=== PATIENT | female | born 1960 | race Caucasian/White ===

== ENCOUNTER 2023-08-04 15:07 | Emergency (ER) | payer OTHER, SELFPAY ==
[2023-08-04] VITALS (7 sets, daily range): BP systolic 145–162; BP diastolic 76–85; PULSE 87–118; RESP 17–20; TEMP 36.2–37.4; O2SAT 98–99; BMI 24.1
--- NOTE | ~2023-08-04 | CT_ITS ---
EXAMINATION: CT HEAD WITHOUT CONTRAST CLINICAL INFORMATION: Fall, head strike COMPARISON: None available. TECHNIQUE: Contiguous axial imaging was performed from the skull base to vertex without intravenous administration of contrast. This CT examination was performed using dose optimization techniques as appropriate, variously including the following: *Automated exposure control *Adjustment of mA and/or kV according to patient size (this includes techniques or standardized protocols for targeted exams where dose is matched to indication/reason for exam; i.e. extremities or head) *Use of iterative reconstruction technique DLP: 597 mGy-cm FINDINGS: There is no evidence of acute intracranial hemorrhage or edematous territorial infarction. No abnormal mass effect or midline shift is seen. Espinoza to white matter differentiation is well preserved. No extra-axial fluid collections are identified. The ventricles are normal in size. No abnormal attenuation in the brain parenchyma. No acute calvarial fracture.. Paranasal sinuses and mastoid air cells are well-aerated. CT/CT head/brain wo IV con IMPRESSION: No CT evidence of acute intracranial hemorrhage or edematous territorial infarction.
--- NOTE | ~2023-08-04 | CT_ITS ---
EXAMINATION: CT ABDOMEN AND PELVIS WITHOUT CONTRAST CLINICAL INFORMATION: Abdominal pain, vomiting, diarrhea, elevated liver function tests. COMPARISON: None available. TECHNIQUE: Multidetector volumetric imaging was performed from the superior aspect of the liver through the pubic symphysis. Sagittal and coronal reformatted images were obtained on the technologist's workstation. This CT examination was performed using dose optimization techniques as appropriate, variously including the following: *Automated exposure control *Adjustment of mA and/or kV according to patient size (this includes techniques or standardized protocols for targeted exams where dose is matched to indication/reason for exam; i.e. extremities or head) *Use of iterative reconstruction technique DLP: 432 mGy-cm FINDINGS: LUNG BASES: The visualized lung bases are unremarkable. No pericardial or pleural effusion. LIVER, GALLBLADDER, AND BILIARY TREE: Low-attenuation of the liver parenchyma with respect to spleen, suggesting hepatic steatosis.. No focal hepatic lesion or biliary ductal dilatation is present. Gallbladder is surgically absent. PANCREAS: No acute inflammatory changes seen. SPLEEN: Unremarkable. ADRENAL GLANDS: Unremarkable. KIDNEYS AND URETERS: The kidneys are normal in size, shape, and attenuation. No hydronephrosis, hydroureter, or calculi seen. No perinephric stranding. Small hypodense lesion in the right renal lower pole, statistically likely to be a cyst. No follow-up is indicated for this. BLADDER: Unremarkable. GASTROINTESTINAL TRACT: Stomach is nondistended. No dilated large or small bowel seen. No bowel inflammatory changes identified. Appendix appears unremarkable. No free fluid. No free air. ABDOMINAL WALL: Small fat-containing umbilical hernia. LYMPH NODES: No pathologically enlarged lymph nodes are seen. VASCULAR: Normal caliber aorta. Atherosclerotic calcification. PELVIC VISCERA: Unremarkable. OSSEOUS STRUCTURES: Multilevel degenerative changes in the spine. S-shaped curvature of the spine. CT/CT abdomen pelvis wo IV con IMPRESSION: Hepatic steatosis. Status postcholecystectomy. No biliary duct dilatation seen. Nonobstructive bowel gas pattern. No acute intra-abdominal findings otherwise identified. Fleischner guidelines were followed.
--- NOTE | ~2023-08-04 | XR_ITS ---
EXAMINATION: XR CHEST CLINICAL INFORMATION: Pain. COMPARISON: None available. TECHNIQUE: 2 views of the chest were obtained. FINDINGS: No airspace consolidation. No pleural effusion or pneumothorax. Unremarkable cardiac mediastinal silhouette. Multiple healed right-sided rib fractures. XR/XR chest 2V IMPRESSION: 1. No acute cardiopulmonary findings. 2. Multiple healed right-sided rib fractures.
--- NOTE | 2023-08-04 15:19 | ED.SEIZURE ---
HPI - Seizure General Chief Complaint: Neuro Symptoms/Deficit Stated Complaint: Seizure this AM Time Seen by Provider: 08/04/23 17:45 Source: patient Mode of arrival: ambulatory Limitations: no limitations History of Present Illness HPI Narrative: Patient drinks every day but claims not alcoholic no issues with drinking in the past for last few weeks been nauseated and vomiting multiple times with poor oral intake for last several weeks was with family at drink yesterday bending down all of a sudden eyes roll started shaking seizure lasted for 2-3 minute no head injury patient has been having tremors and increased anxiety patient lives alone denies any significant intake of alcohol but drinks every other day Related Data Previous Rx's ?Medication ?Instructions ?Recorded lorazepam 2 mg tablet (Ativan) 2 mg PO TID PRN alcohol withdrawal 08/04/23 #20 tabs Allergies Allergy/AdvReac Type Severity Reaction Status Date / Time penicillin G [Penicillin G] Allergy Unknown RASH Verified 08/04/23 15:24 Sulfa (Sulfonamide Allergy Unknown RASH Verified 08/04/23 15:24 Antibiotics) Review of Systems Review of Systems: Yes all other systems are reviewed and are negative [facility] Social History Social History Alcohol intake: current Alcohol intake frequency: holidays/special occasions only Smoked in Last 30 Days: No Use of substances other than those prescribed or required for medical reasons: No Advance Directives: No Advance Directives Information Provided: Yes Do you have a plan to hurt others: No Plan Physical Exam Vital Signs: Vital Signs: Last Vital Signs Temp 97.9 F 08/04/23 20:46 Pulse 87 08/04/23 20:46 Resp 17 08/04/23 20:46 BP 146/79 H 08/04/23 20:46 Pulse Ox 98 08/04/23 20:46 O2 Del Method Room Air 08/04/23 20:46 BMI result Body Mass Index 24.1 Appearance: Alert. Oriented X3. No acute distress. Eyes: PERRLA, No Nystagmus ENT: Pharynx normal. Oral Mucosa moist atraumatic normocephalic Neck: Normal inspection. Neck supple. CVS: Normal heart rate and rhythm. Pulses normal. Respiratory: No respiratory distress. Equal air entry bilateral, no wheezing/rales/rhonchi Abdomen: Soft and nontender. Bowel sounds are present, no mass palpable, no CVA tenderness Skin: Skin warm and dry. Normal skin color. Normal skin turgor. Extremities: No lower extremity edema. No calf tenderness Neuro: Oriented X 3. No motor deficit. No sensory deficit.No cerebellar signs , cranial nerves II-XII intact tremors++ Course Course Course Narrative: This is a rapid medical exam. deferred additional HPI, ROS, PE to primary provider. 62 yo female with history of asthma (as a child), HTN, HLD, depression has had vomiting/diarrhea/generalized abdominal pain x several weeks. Today patient was bending down and then had stiffness and trembling which family feels was a seizure followed by a head strike. Had period of unresponsiveness, confusion per family. Family reports increasing depression, poor appetite and 40lb weight loss in the last 5 months. Will need labs, orthos, EKG, UA, CXR, CT head Mildly tachycardic, hypertensive -A Pascucci [employer] Medications Administered Discontinued Medications Generic Name Dose Route Start Last Admin Trade Name Zack PRN Reason Stop Dose Admin Famotidine 20 mg 08/04/23 18:10 08/04/23 18:29 Famotidine/Pf 20 Mg/2 Ml Vial IVPUSH 08/04/23 18:11 20 mg ONCE ONE Administration Potassium Chloride 10 meq in 100 mls @ 100 mls/hr 08/04/23 18:10 08/04/23 18:29 Potassium Chloride/H20 IV 08/04/23 19:09 100 mls/hr ONCE ONE Administration Sodium Chloride 1,000 mls @ 999 mls/hr 08/04/23 18:09 08/04/23 18:29 Ns IV 08/04/23 19:09 999 mls/hr .Q1H1M ONE Administration Lorazepam 1 mg 08/04/23 18:10 08/04/23 18:29 Lorazepam 2 Mg/Ml Vial IVPUSH 08/04/23 18:11 1 mg ONCE ONE Administration Lorazepam 2 mg 08/04/23 21:10 08/04/23 21:25 Lorazepam 1 Mg Tablet PO 08/04/23 21:11 2 mg ONCE ONE Administration Ondansetron HCl 4 mg 08/04/23 16:33 08/04/23 16:35 Ondansetron Odt 4 Mg Tab.Rapdis TRANSLINGU 08/04/23 16:34 4 mg ONCE ONE Administration Ondansetron HCl 4 mg 08/04/23 18:10 08/04/23 18:29 Ondansetron Hcl 4 Mg/2 Ml Vial IVPUSH 08/04/23 18:11 4 mg ONCE ONE Administration Medical Decision Making Medical Decision Making [facility] Narrative: Patient clinically alcoholic with alcohol withdrawal seizure patient denies significant use alcohol but LFTs are elevated GGT is also elevated says she drinks every other day. Patient's like to go home and follow up with PCP and like to do alcohol withdrawal at home with Ativan Differential Diagnosis Differential Diagnoses: The differential diagnosis associated with the presentation includes Alcoholic liver disease/alcohol withdrawal/seizure/ Admission/Observation Consideration of admission/observation: Escalation of care including admission/observation considered Lab Data [facility] Lab Attestation statement: I reviewed the patient's lab results. 08/04/23 16:06 08/04/23 16:06 Labs: Lab Results 08/04/23 08/04/23 08/04/23 Range/Units 16:06 18:20 20:48 WBC 7.0 (4.8-10.8) X10*3/uL RBC 3.88 L (4.20-5.50) X10*6/uL Hgb 12.7 (12.0-16.0) g/dl Hct 35.0 L (37.0-47.0) % MCV 90.2 (80.0-98.0) fL MCH 32.7 (27.0-33.0) pg MCHC 36.3 H (31.0-35.0) g/dl RDW 13.0 (11.0-16.0) % Plt Count 162 (160-400) X10*3/uL MPV 8.4 L (9.4-12.3) fL Immature Gran % (Auto) 0.3 (0.0-0.4) % Neut % (Auto) 75.2 H (45-73) % Lymph % (Auto) 8.7 L (20-40) % Cowley % (Auto) 12.5 H (2-11) % Eos % (Auto) 2.7 (0-4) % Baso % (Auto) 0.6 (0-2) % Lymph # (Auto) 0.6 L (1.2-4.9) X10*3/uL [place]ley # (Auto) 0.9 (0.1-1.2) X10*3/uL Eos # (Auto) 0.2 (0.0-0.4) X10*3/uL Baso # (Auto) 0.0 (0.0-0.2) X10*3/uL Abs Immat Gran (auto) 0.02 (0.00-0.03) X10*3/uL Absolute Neuts (auto) 5.3 (2.0-8.3) x10*3/uL Absolute Nucleated RBC 0.000 (0.0-0.012) X10*3/uL Nucleated RBC % (auto) 0.0 (0.0-0.2) /100WBC Sodium 134 L (135-145) mmol/L Potassium 3.2 L (3.3-5.1) mmol/L Chloride 96 (96-108) mmol/L Carbon Dioxide 21 L (22-29) mmol/L Anion Gap 20 (12-20) BUN 9 (9-16) mg/dL Creatinine 0.66 (0.5-1.4) mg/dL Estim Creat Clear Calc 72.2 Estimated GFR > 60 Random Glucose 99 (60-115) mg/dL Calcium 9.4 (8.4-10.2) mg/dL Magnesium 2.2 (1.6-2.6) mg/dL Total Bilirubin 3.1 H (0.0-1.0) mg/dL Direct Bilirubin 0.9 H (0.0-0.5) mg/dL GGT 1822 H (7-33) U/L AST 156 H (5-31) U/L ALT 122 H (0-31) U/L Alkaline Phosphatase 202 H (39-117) U/L Total Creatine Kinase 403 H (26-140) U/L Troponin I High Sens 161.2 H* 156.0 H* (<3.5-17.0) ng/L Total Protein 8.2 H (6.5-8.0) g/dL Albumin 4.8 (3.5-5.0) g/dL Urine Color Yellow Urine Appearance Clear Urine pH 7.0 (5.0-9.0) Ur Specific [place] 1.015 (1.005-1.025) Urine Protein Trace (Neg-Trace) mg/dL Urine Glucose (UA) Negative (Negative) mg/dL Urine Ketones 40 (Negative) mg/dL Urine Blood Negative (Negative) Urine Nitrite Negative (Negative) Ur Leukocyte Esterase Negative (Negative) Independent Interpretation I performed an independent interpretation of an: EKG and CT Scan Interpretation: Sinus tachycardia heart rate of 103 beats per minute poor progression of R-wave QTC [address] elevation Radiology Impression Discussion of test interpretation with radiology: I have reviewed the radiologist's reading. Discharge Plan Discharge Clinical Impression: Alcoholic liver disease, New onset seizure Patient Disposition: Home, Self-Care Instructions: New-Onset Seizure in Adults (ED), Alcohol Dependence (ED) Additional Instructions: Stop drinking alcohol You need to follow up with neurologist for further management you possible had alcohol withdrawal seizure Your potassium was also slightly low , eat food containing high potassium leg bananas orange juice/coconut water Ativan 1 mg every 4-6 hours as needed for alcohol withdrawal/seizure Follow with leather sorter for elevated liver enzymes Prescriptions: New lorazepam [Ativan] 2 mg tablet 2 mg PO TID PRN (Reason: alcohol withdrawal) Qty: 20 0RF Referrals: Esteban Vasquez MD [Physician] - 1 week Italo Cramer MD [Physician] - 1 week Print Language: Telugu
--- NOTE | 2023-08-04 15:21 | ECG_ITS ---
Test Reason : seizure Blood Pressure : / mmHG Vent. Rate : 103 BPM Atrial Rate : 103 BPM P-R Int : 178 ms QRS Dur : 078 ms QT Int : 366 ms P-R-T Axes : 027 -28 013 degrees QTc Int : 479 ms Sinus tachycardia Inferior infarct , age undetermined Cannot rule out Anterior infarct , age undetermined Abnormal ECG When compared with ECG of 08-JAN-2009 15:48, Vent. rate has increased BY 35 BPM Minimal criteria for Anterior infarct are now Present Inferior infarct is now Present QT has lengthened Referred By: Kaitlynn Rodriguez Electronically Signed By:JOSE KOEHLER MD
[2023-08-04 16:10] LABS: MANUAL DIFF FLAG NO
[2023-08-04 16:11] LABS: Basophils Percent Auto 0.6 % (0-2); Hemoglobin 12.7 g/dl (12.0-16.0); Imm Gran Abs Auto 0.02 X10*3/uL (0.00-0.03); Imm Gran Pct Auto 0.3 % (0.0-0.4); PLT CLUMP 1; SCAN SMEAR FLAG 1
[2023-08-04 16:13] LABS: Eosinophils Absolute Auto 0.2 X10*3/uL (0.0-0.4); Eosinophils Percent Auto 2.7 % (0-4); Lymphocytes Absolute Auto 0.6 X10*3/uL (1.2-4.9); Lymphocytes Percent Auto 8.7 % (20-40); Mean Corpuscular HGB Conc 36.3 g/dl (31.0-35.0); Mean Corpuscular Hemoglobin 32.7 pg (27.0-33.0); Mean Corpuscular Volume 90.2 fL (80.0-98.0); Mean Platelet Volume 8.4 fL (9.4-12.3); Monocytes Absolute Auto 0.9 X10*3/uL (0.1-1.2); Monocytes Percent Auto 12.5 % (2-11); Neutrophils Absolute Auto 5.3 x10*3/uL (2.0-8.3); Neutrophils Percent Auto 75.2 % (45-73); Red Blood Count 3.88 X10*6/uL (4.20-5.50)
[2023-08-04 16:14] LABS: Platelet Count 162 X10*3/uL (160-400)
[2023-08-04 16:25] LABS: Alanine Aminotransferase 122 U/L (0-31); Albumin Level 4.8 g/dL (3.5-5.0); Alkaline Phosphatase 202 U/L (39-117); Anion Gap 20 (12-20); Aspartate Amino Transferase 156 U/L (5-31); Bilirubin Direct 0.9 mg/dL (0.0-0.5); Bilirubin Total 3.1 mg/dL (0.0-1.0); Blood Urea Nitrogen 9 mg/dL (9-16); Calcium 9.4 mg/dL (8.4-10.2); Carbon Dioxide 21 mmol/L (22-29); Chloride 96 mmol/L (96-108); Creatinine Clr Calc Pharmacy 72.2; Estimated Glomerular Filt Rate > 60; Glucose Random 99 mg/dL (60-115); Magnesium 2.2 mg/dL (1.6-2.6); Potassium 3.2 mmol/L (3.3-5.1); Sodium 134 mmol/L (135-145); Total Protein 8.2 g/dL (6.5-8.0)
[2023-08-04 16:34] LABS: Troponin-I High Sensitivity 161.2 ng/L (<3.5-17.0)
[2023-08-04] MEDS: Ondansetron ODT 4 MG TAB.RAPDIS TRANSLINGU (16:35)
--- NOTE | 2023-08-04 17:30 | PC.NURSE ---
Patient reports n/v and abdominal pain x 6 months, reports has lost 40lbs since Mar, reports has had insomnia for years but it has been worse in the last 6 months, denies headache or chest pain. Patient reports rarely drinks however friend at bedside states he has been with her for the last few days and she has drank multiple bottles of wine. Patient reports has had tremors since Mar that are worse today. Pupils appear dilated bilaterally. Friend reports that she fell and hit her head this morning and had x 1 minute of seizure like activity this am. Patient denies seizure hx, friend reports patient has seemed disoriented and forgot to bring her mediations on the trip they just went on
[2023-08-04] MEDS: ondansetron HCL 4 MG/2 ML VIAL IVPUSH (18:29)
[2023-08-04] MEDS: LORazepam 2 MG/ML VIAL 1 MG IVPUSH (18:29)
[2023-08-04] MEDS: Famotidine/PF 20 MG/2 ML VIAL IVPUSH (18:29)
[2023-08-04] MEDS: Potassium Chloride/H20 10 MEQ/100 ML PIGGYBACK 100 MEQ IV (18:29)
[2023-08-04] MEDS: 0.9 % Sodium Chloride 1,000 ML 999 ML IV (18:29)
[2023-08-04 18:39] LABS: Gamma Glutamyl Transpeptidase 1822 U/L (7-33)
[2023-08-04 20:53] LABS: Appearance Urine Clear; Color Urine Yellow; Glucose Urine UA Negative (Negative); Leukocyte Esterase Urine Negative (Negative); Nitrite Urine Negative (Negative); Specific Gravity - Urine 1.015 (1.005-1.025); Urine Blood Negative (Negative); Urine Ketones 40 mg/dL (Negative); Urine Protein Trace mg/dL (Neg-Trace)
[2023-08-04] MEDS: LORazepam 1 MG TABLET 2 MG PO (21:25)
[2023-08-05 03:17] VITALS: BP 146/79; PULSE 87; RESP 17; TEMP 36.6; O2SAT 98
== END 2023-08-04 21:30 | disposition home or self-care (01) ==
PROVIDERS: Nurse Practitioner Family; Emergency Provider Internal Medicine; PCP Internal Medicine
DX: K70.9 Alcoholic liver disease, unspecified (principal); R56.9 Unspecified convulsions; R11.2 Nausea with vomiting, unspecified; R79.89 Other specified abnormal findings of blood chemistry
CPT/HCPCS: 36415; 70450; 71046; 74176; 80048; 80076; 81003; 82550; 82977; 83735; 84484; 85025; 93005; 96374; 96375; 99285; J2060; J2405; J3480

== ENCOUNTER → 2023-08-04 15:21 | Outpatient (BNV) | payer OTHER, SELFPAY | PROVIDERS: Emergency Provider Internal Medicine; PCP Internal Medicine; Visit Provider Internal Medicine Cardiovascular Disease | DX: R94.31 Abnormal electrocardiogram [ECG] [EKG] (principal) | CPT/HCPCS: 93010 ==

== ENCOUNTER 2023-09-28 13:15 | Outpatient (AMB) | payer OTHER, SELFPAY ==
[2023-09-28 13:34] VITALS: BP 124/70; PULSE 87; O2SAT 97; BMI 25.5
--- NOTE | 2023-09-28 13:34 | MHC.PC.OV ---
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 Allergies penicillin G [Penicillin G] Allergy (Unknown, Verified 09/28/23 13:35) RASH Sulfa (Sulfonamide Antibiotics) Allergy (Unknown, Verified 09/28/23 13:35) RASH Medication List - Last Reconciled 09/28/23 by Petra Gerber MD atorvastatin 20 mg PO BEDTIME beta carotene mg PO cetirizine (Zyrtec) 10 mg PO DAILY PRN fluoxetine (Prozac) 20 mg PO DAILY lorazepam (Ativan) 2 mg PO TID PRN multivitamin 1 tab PO DAILY naltrexone 50 mg PO DAILY propranolol 40 mg PO .QD selenium 50 mcg PO DAILY Tobacco use date assessed: 09/28/23 Dental Screening Dental Screen Date: 09/28/23 Did you have a dental visit in the last 12 months?: Yes Did you have a dental problem in the last 6 months where you did not have access to dental care?: No Was dental information given to patient?: Patient has dentist 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 Review of the notes ER visit Aug 05 2023 was nauseated and vomited multiple times and was found to have eyes rolling back with shaking seizure-like event denies any head injury does drink alcohol every other day concern about alcoholic liver disease and new onset seizure. Patient has been prescribed lorazepam. [facility] and being treated for alcohol abuse. CT of the abdomen was done showing hepatic steatosis status post cholecystectomy but patient states no gb surgery. Chest x-ray done showing multiple healed right-sided rib fractures. Head CT negative.. September last alcohol drink [facility] Medical History (Updated 09/28/23 @ 14:21 by Petra Gerber MD) Asthma Surgical History (Updated 09/28/23 @ 14:24 by Petra Gerber MD) History of tonsillectomy and adenoidectomy Bunion of great toe Breast implant in situ Family History (Updated 09/28/23 @ 14:25 by Petra Gerber MD) Mother Dementia Crohn disease Father Dementia Son No problems noted. Brother No problems noted. Brother No problems noted. 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 1. Little interest or pleasure in doing things: several days 2. Feeling down, depressed, or hopeless: several days 3. Trouble falling or staying asleep, or sleeping too much: nearly every day 4. Feeling tired or having little energy: nearly every day 5. Poor appetite or overeating: several days 6. Feeling bad about yourself - or that you are a failure or have let yourself or your family down: more than half the days 7. Trouble concentrating on things, such as reading the newspaper or watching television: not at all 8. Moving or speaking so slowly that other people could have noticed. Or the opposite - being so fidgety or restless that you have been moving around a lot more than usual: not at all 9. Thoughts that you would be better off or of hurting yourself in some way: not at all Total score: 11 Depression Screening Interpretation: Positive Depression Screening Done: Yes 42014 - PHQ-9 Billing: Yes Source: Developed by Drs. Dieudonne Parada, Maria Esther Lassiter, Gerardo Hernandez and colleagues, with an educational teresa from [employer]. Thrive Questionnaire Date Thrive assessed: 09/28/23 I am a: Patient What is your living situation today?: I have a steady place to live Within the past 12 months, did the food you bought not last and you didn't have the money to get more?: Never true Within the past 12 months, did you worry whether your food would run out before you got money to buy more?: Never true Do you have trouble paying for medicines?: No Do you have trouble getting transportation to medical appointments?: No Do you have trouble paying your heating and electricity bill?: No Do you have trouble taking care of your child, family member or friend?: No Do you have trouble with day-to-day activities such as bathing, preparing meals, shopping, managing finances, etc.?: No Are you currently unemployed and looking for a job?: No Are you interested in more education?: No Currently or been in a relationship where the following occur: No concerns reported THRIVE Score: 0 AUDIT C Alcohol Use Questionnaire (AUDIT-C) 1. How often do you have a drink containing alcohol?: Never 3. How often do you have six or more drinks on one occasion?: Never Total Score: 0 RICKY-7 AMB Questionnaire RICKY-7 Date RICKY - 7 assessed: 09/28/23 Feeling nervous, anxious, or on edge: 0 = Not at all Not being able to stop or control worryin = Not at all Worrying too much about different things: 0 = Not at all Trouble relaxin = Not at all Being so restless that it is hard to sit still: 0 = Not at all Becoming easily annoyed or irritable: 0 = Not at all Feeling afraid as if something awful might happen: 0 = Not at all Total RICKY-7 score (0-4 normal; 5-9 mild; 10-14 moderate; 15-21 severe): 0 Source: Developed by Drs. Dieudonne Parada, Maria Esther Lassiter, Gerardo Hernandez and colleagues, with an educational teresa from [employer]. Review of Systems Const Denies poor appetite and Denies weakness Eyes Denies no additional complaints ENT Reports Normal hearing present, Denies dizziness, Denies nasal congestion, Denies tinnitus and Denies sore throat Card Denies chest pain, Denies syncope, Denies rapid heart rate and Denies dyspnea Resp Denies cough and Denies dyspnea GI Denies change in stool character, Reports constipation, Denies diarrhea, Denies nausea and Denies vomiting Denies urinary frequency, Denies difficulty voiding and Denies dysuria Neuro Reports Normal hearing present, Denies confusion, Denies dizziness, Denies syncope and Denies weakness Psych Denies confusion Physical exam (Primary Care) Vital Signs: Last Vital Signs Pulse 87 09/28/23 13:34 BP 124/70 09/28/23 13:34 Pulse Ox 97 09/28/23 13:34 Oxygen Delivery Method Room Air 09/28/23 13:34 BMI result Body Mass Index 25.5 Tobacco/Smoking Status: Tobacco use Status Tobacco use date assessed 09/28/23 09/28/23 13:45 Patient Tobacco Use Status Never used Tobacco 09/28/23 14:27 Tobacco use type Cigarette 09/28/23 14:27 e-Cigarette/Vaping Use Never Used 09/28/23 14:27 PHQ-9: PHQ-9 Score PHQ-9: Total score 11 09/28/23 14:14 Depression Screening Interpretation: Positive Thrive Assessment: Date of Thrive Assessment Date Thrive assessed 09/28/23 09/28/23 13:45 Currently or been in a relationship where the following occur: No concerns reported Const General: No confusion Orientation/consciousness: No confusion HENMT Head: Yes normocephalic Ears: external ears normal and TM's normal bilaterally Face and sinus: Yes normal facial exam Mouth: moist mucous membranes Throat: Yes tonsils normal Eyes Conjunctivae: conjunctivae normal Pupils: Equal, round and reactive pupils present and Pupil accommodation reflex normal Direct Ophthalmoscopy: normal light reflex Neck Neck: No lymphadenopathy Thyroid: Thyroid normal Chest Chest palpation & inspection: normal inspection of the chest Resp Effort & Inspection: normal respiratory effort and no audible wheezes Auscultation: clear to auscultation bilaterally, no crackles, no wheezes and lung sounds not diminished Cardio Rate: regular rate Rhythm: regular rhythm Peripheral pulses: radial pulses present and dorsalis pedis present GI Palpation (GI): no masses Auscultation: normal bowel sounds and normoactive bowel sounds Rectal Exam - Female: deferred Skin General skin exam: no rashes or lesions noted Rashes: no rashes Neuro General: No confusion Cranial nerves: Yes Equal, round and reactive pupils present and Yes Normal hearing present Cognition (Neuro): normal cognition Gait exam (Neuro): Normal gait present Motor exam (neuro): 5/5 motor strength present throughout Deep tendon reflexes (DTR's): Right brachioradialis reflex intensity grade: 2+, Left brachioradialis reflex intensity grade: 2+, Right patellar reflex intensity grade: 2+ and Left patellar reflex intensity grade: 2+ Extrem General: No edema Immunizations tetanus-diphtheria toxoids-Td 2 Lf unit-2 Lf unit/0.5 mL IM suspension Performing Provider: Petra Gerber MD [facility] Administered by: MARCELA Regalado on 09/28/23 16:26 Dose Route Admin Location Dispensed Lot Number Expiration Date NDC Dobie Man 0.5 mL IM Left Deltoid 0.5 mL [id number] 04/28/24 [address]-2 [employer] VIS Given Date VIS Provided VIS Publication Date 09/28/23 Single Vaccine 20 Eligibility Eligibility Date Funding Source Not C Eligible 09/28/23 State funds Assessment and Plan Assessment & Plan (1) Annual physical exam: Code(s): Z00.00 - Encounter for general adult medical examination without abnormal findings Plan: Patient is advised to eat healthy, keep well hydrated, keep active and have adequate sleep. (2) Seizures: Code(s): R56.9 - Unspecified convulsions Plan: Most likely alcohol related, patient has been enrolled in [facility] (3) Hepatic steatosis: Code(s): K76.0 - Fatty (change of) liver, not elsewhere classified Plan: Patient aware to abstain from alcohol, eat healthy and keep active (4) Hypokalemia: Code(s): E87.6 - Hypokalemia Plan: presently doing good will do repeat testing (5) Alcohol abuse: Code(s): F10.10 - Alcohol abuse, uncomplicated Plan: Patient is enrolled in [employer]. Orders: Orders Complete Blood Count Auto Diff 2 Months K76.0 - Fatty (change of) liver, not elsewhere classified Vitamin D 25-OH Total 2 Months K76.0 - Fatty (change of) liver, not elsewhere classified Gamma Glutamyl Transpeptidase Today K76.0 - Fatty (change of) liver, not elsewhere classified Comprehensive Met. Panel 2 Months K76.0 - Fatty (change of) liver, not elsewhere classified Free T4 (Free Thyroxine) 2 Months K76.0 - Fatty (change of) liver, not elsewhere classified Thyroid Stimulating Hormone 2 Months K76.0 - Fatty (change of) liver, not elsewhere classified UA w Microscopic 2 Months K76.0 - Fatty (change of) liver, not elsewhere classified Vitamin B12 and Folate 2 Months K76.0 - Fatty (change of) liver, not elsewhere classified Lipid Panel 2 Months E78.00 - Pure hypercholesterolemia, unspecified, K76.0 - Fatty (change of) liver, not elsewhere classified Td State Immunization Today Z23 - Encounter for immunization Medications: New propranolol 20 mg PO .QD 90 tabs 1RF fluoxetine (Prozac) 20 mg PO DAILY 90 caps 2RF atorvastatin 20 mg PO BEDTIME 90 tabs 2RF tetanus-diphtheria toxoids-Td 0.5 mL IM ONCE 0.5 mL 0RF Z23 - Encounter for immunization Coding Level of Care Code New Pt Level 4 (36722) Diagnoses Annual physical exam Z00.00 Seizures R56.9 Hepatic steatosis K76.0 Hypokalemia E87.6 Alcohol abuse F10.10
== END 2023-09-28 14:56 | disposition home or self-care (01) ==
PROVIDERS: PCP Internal Medicine; Visit Provider Internal Medicine
DX: Z00.00 Encounter for general adult medical examination without abnormal findings (principal); R56.9 Unspecified convulsions; K76.0 Fatty (change of) liver, not elsewhere classified; E87.6 Hypokalemia; F10.10 Alcohol abuse, uncomplicated; Z23 Encounter for immunization
CPT/HCPCS: 90471; 90714; 99204

== ENCOUNTER 2024-01-11 12:26 | Outpatient (REF) | payer OTHER, SELFPAY ==
[2024-01-11 12:53] LABS: MANUAL DIFF FLAG NO
[2024-01-11 14:10] LABS: Basophils Percent Auto 0.5 % (0-2); Eosinophils Absolute Auto 0.1 X10*3/uL (0.0-0.4); Eosinophils Percent Auto 1.5 % (0-4); Hematocrit 35.2 % (37.0-47.0); Imm Gran Abs Auto 0.06 X10*3/uL (0.00-0.03); Imm Gran Pct Auto 0.9 % (0.0-0.4); Lymphocytes Percent Auto 30.2 % (20-40); Mean Corpuscular HGB Conc 34.1 g/dl (31.0-35.0); Mean Corpuscular Hemoglobin 30.8 pg (27.0-33.0); Mean Corpuscular Volume 90.3 fL (80.0-98.0); Mean Platelet Volume 9.9 fL (9.4-12.3); Monocytes Absolute Auto 0.8 X10*3/uL (0.1-1.2); Monocytes Percent Auto 11.6 % (2-11); Neutrophils Absolute Auto 3.7 x10*3/uL (2.0-8.3); Neutrophils Percent Auto 55.3 % (45-73); Platelet Count 199 X10*3/uL (160-400); White Blood Count 6.7 X10*3/uL (4.8-10.8)
[2024-01-11 14:13] LABS: Appearance Urine Clear; Color Urine Yellow; Glucose Urine UA Negative (Negative); Leukocyte Esterase Urine Negative (Negative); Nitrite Urine Negative (Negative); PH 7.5 (5.0-9.0); Specific Gravity - Urine 1.015 (1.005-1.025); Urine Blood Negative (Negative); Urine Ketones Negative (Negative); Urine Protein Negative (Neg-Trace)
[2024-01-11 14:16] LABS: Bacteria Urine None Seen (None Seen); Hyaline Casts Urine 0-2 /LPF (0-2); RBC Urine 0-2 /HPF (0-2); Squamous Epithelial Cell Urine 0-2 /HPF (0-2); WBC Urine 0-5 /HPF (0-5)
[2024-01-11 15:16] LABS: Alanine Aminotransferase 26 U/L (0-31); Albumin Level 4.2 g/dL (3.5-5.0); Alkaline Phosphatase 72 U/L (39-117); Anion Gap 13 (12-20); Aspartate Amino Transferase 33 U/L (5-31); Blood Urea Nitrogen 10 mg/dL (9-16); Calcium 9.5 mg/dL (8.4-10.2); Carbon Dioxide 27 mmol/L (22-29); Chloride 97 mmol/L (96-108); Cholesterol 158 mg/dL (<200); Estimated Glomerular Filt Rate > 60; Gamma Glutamyl Transpeptidase 114 U/L (7-33); Glucose Random 87 mg/dL (60-115); HDL Cholesterol 80 mg/dL (>40); LDL Cholesterol Calculated 65 mg/dL (<100); Potassium 3.1 mmol/L (3.3-5.1); Sodium 134 mmol/L (135-145); Total Protein 7.1 g/dL (6.5-8.0); Triglycerides 67 mg/dL (<150)
[2024-01-11 15:22] LABS: Free T4 (Free Thyroxine) 0.74 ng/dL (0.71-1.85); Thyroid Stimulating Hormone 1.13 uIU/mL (0.32-4.0); Vitamin D 25-OH Total 35.8 ng/mL (>30)
[2024-01-11 16:08] LABS: Folate 15.5 ng/mL (> or = 4.0); Vitamin B12 699 pg/mL (200-900)
== END 2024-01-11 12:27 | disposition home or self-care (01) ==
LOC: HO.LAB 12:26
PROVIDERS: PCP Internal Medicine; Visit Provider Internal Medicine
DX: K76.0 Fatty (change of) liver, not elsewhere classified (principal); E78.00 Pure hypercholesterolemia, unspecified
CPT/HCPCS: 36415; 80053; 80061; 81001; 82306; 82607; 82746; 82977; 84439; 84443; 85025

== ENCOUNTER 2024-12-02 15:39 | Outpatient (AMB) | payer OTHER, SELFPAY ==
--- NOTE | 2024-12-02 15:40 | MHC.PC.OV ---
Vital Signs 12/02/24 15:41 Height 5 ft 3 in Weight 147 lb 2 oz BMI 26.1 BP 110/60 Blood Pressure Location Lt brachial Position Sitting Pulse 81 Pulse Source Pulse Oximeter Temp 97.3 F Temp Source Temporal Artery Scan Pulse Oximetry (%) 100 Oxygen Delivery Method Room Air Intake Visit Reasons: Follow up Allergies penicillin G (Penicillin G) Allergy (Unknown, Verified 12/02/24 15:45) RASH Sulfa (Sulfonamide Antibiotics) Allergy (Unknown, Verified 12/02/24 15:45) RASH Medication List - Last Reconciled 12/02/24 by Petra Gerber MD atorvastatin 20 mg PO BEDTIME cetirizine (Zyrtec) 10 mg PO DAILY PRN fluoxetine (Prozac) 20 mg PO DAILY multivitamin 1 tab PO DAILY propranolol 20 mg PO .QD Tobacco use date assessed: 12/02/24 Fall risk assessment: No Falls in past year Last assessed Fall Risk: 12/02/24 Dental Screening Dental Screen Date: 12/02/24 Did you have a dental visit in the last 12 months?: Yes Did you have a dental problem in the last 6 months where you did not have access to dental care?: No Was dental information given to patient?: Patient has dentist HPI Follow up HPI Details breast biopsy done negative light headed 1 week , off balance, constipation, PFSH Medical History Asthma Surgical History History of tonsillectomy and adenoidectomy Bunion of great toe Breast implant in situ Family History Mother Dementia Crohn disease Father Dementia Son No problems noted. Brother No problems noted. Brother No problems noted. 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 1. Little interest or pleasure in doing things: not at all 2. Feeling down, depressed, or hopeless: not at all 3. Trouble falling or staying asleep, or sleeping too much: not at all 4. Feeling tired or having little energy: not at all 5. Poor appetite or overeating: not at all 6. Feeling bad about yourself - or that you are a failure or have let yourself or your family down: not at all 7. Trouble concentrating on things, such as reading the newspaper or watching television: not at all 8. Moving or speaking so slowly that other people could have noticed. Or the opposite - being so fidgety or restless that you have been moving around a lot more than usual: not at all 9. Thoughts that you would be better off or of hurting yourself in some way: not at all Total score: 0 Depression Screening Interpretation: Positive Depression Screening Done: Yes 72312 - PHQ-9 Billing: Yes Source: Developed by Drs. Dieudonne Parada, Maria Esther Lassiter, Gerardo Hernandez and colleagues, with an educational teresa from [employer]. Thrive Questionnaire Date Thrive assessed: 12/02/24 I am a: Patient What is your living situation today?: I have a steady place to live Within the past 12 months, did the food you bought not last and you didn't have the money to get more?: Never true Within the past 12 months, did you worry whether your food would run out before you got money to buy more?: Never true Do you have trouble paying for medicines?: No Do you have trouble getting transportation to medical appointments?: No Do you have trouble paying your heating and electricity bill?: No Do you have trouble taking care of your child, family member or friend?: No Do you have trouble with day-to-day activities such as bathing, preparing meals, shopping, managing finances, etc.?: No Are you currently unemployed and looking for a job?: No Are you interested in more education?: No Please select the resources that you would like help with: None Currently or been in a relationship where the following occur: No concerns reported THRIVE Score: 0 AUDIT C Alcohol Use Questionnaire (AUDIT-C) 1. How often do you have a drink containing alcohol?: 4 or more times a week 2. How many drinks containing alcohol do you have on a typical day when you are drinking?: 1 or 2 3. How often do you have six or more drinks on one occasion?: Never Total Score: 4 RICKY-7 AMB Questionnaire RICKY-7 Date RICKY - 7 assessed: 12/02/24 Feeling nervous, anxious, or on edge: 0 = Not at all Not being able to stop or control worryin = Not at all Worrying too much about different things: 0 = Not at all Trouble relaxin = Not at all Being so restless that it is hard to sit still: 0 = Not at all Becoming easily annoyed or irritable: 0 = Not at all Feeling afraid as if something awful might happen: 0 = Not at all Total RICKY-7 score (0-4 normal; 5-9 mild; 10-14 moderate; 15-21 severe): 0 Source: Developed by Drs. Dieudonne Parada, Maria Esther Lassiter, Gerardo Hernandez and colleagues, with an educational teresa from [employer]. RICKY-7 Assessment Billing RICKY-7 Assessment Tool: RICKY-7 Assessment 61034 Physical exam (Primary Care) Vital Signs: Last Vital Signs Temp 97.3 F 12/02/24 15:41 Pulse 81 12/02/24 15:41 BP 110/60 12/02/24 15:41 Pulse Ox 100 12/02/24 15:41 Oxygen Delivery Method Room Air 12/02/24 15:41 BMI result Body Mass Index 26.1 Tobacco/Smoking Status: Tobacco use Status Tobacco use date assessed 12/02/24 12/02/24 15:47 Patient Tobacco Use Status Never used Tobacco 12/02/24 15:47 Tobacco use type Cigarette 12/02/24 15:47 e-Cigarette/Vaping Use Never Used 12/02/24 15:47 PHQ-9: PHQ-9 Score PHQ-9: Total score 0 12/02/24 15:47 Depression Screening Interpretation: Positive Thrive Assessment: Date of Thrive Assessment Date Thrive assessed 12/02/24 12/02/24 15:47 Currently or been in a relationship where the following occur: No concerns reported Const Other: Pale skin with icterisia General: alert; No acute distress Eyes Conjunctivae: conjunctivae normal Resp Auscultation: clear to auscultation bilaterally Cardio Rate: regular rate Rhythm: regular rhythm GI Inspection: Yes normal to inspection Extrem General: Yes normal to inspection and No edema Coding Level of Care Code Est Pt Level 4 (26457) Complex EM visit Add On G2211 Diagnoses Hepatic steatosis K76.0 Alcohol abuse F10.10 Seizures R56.9 Hypercholesterolemia E78.00 Generalized anxiety disorder F41.1 Constipation K59.00 Light headedness R42 Additional Codes RICKY-7 Assessment Billing - RICKY-7 Assessment Tool: RICKY-7 Assessment 07060 ([id number]) PHQ-9 - 42981 - PHQ-9 Billing: Yes ([id number]) Assessment & Plan Assessment & Plan (1) Hepatic steatosis: Code(s): K76.0 - Fatty (change of) liver, not elsewhere classified Category: Medical Plan: Low-fat diet and exercise (2) Alcohol abuse: Comment: (4 x a week 1-2 drinks)11/2024 Code(s): F10.10 - Alcohol abuse, uncomplicated Category: Social Hx Plan: Patient is strongly advised to abstain. (3) Seizures: Code(s): R56.9 - Unspecified convulsions Category: Medical Plan: Continuing to monitor (4) Hypercholesterolemia: Code(s): E78.00 - Pure hypercholesterolemia, unspecified Category: Medical Plan: Avoid fried foods, chicken skin, eggs, butter margarine, pastries and meat. Be it pork or beef they have a lot of cholesterol LDL goal of less than 130 and triglyceride of less than 150. On atorvastatin 20 mg at bedtime (5) Generalized anxiety disorder: Code(s): F41.1 - Generalized anxiety disorder Category: Medical Plan: Continue with present medication (6) Constipation: Code(s): K59.00 - Constipation, unspecified Category: Medical (7) Light headedness: Code(s): R42 - Dizziness and giddiness Category: Medical Plan History of Present Illness The patient is a 63-year-old female presenting for a follow-up visit. She has a history of hepatic steatosis, seizure disorder, and alcohol use disorder, with current alcohol consumption reduced to one or two drinks about four times a week. Recent blood work from December 2023 indicated hyponatremia and hypokalemia, with normal renal function and elevated liver enzymes. Cholesterol management includes atorvastatin 20 mg at bedtime, with an LDL of 65 mg/dL. The patient reports generalized anxiety disorder and recent onset of lightheadedness, leading to temporary cessation of propranolol and other medications. She denies fever, vision problems, headaches, cough, shortness of breath, and diarrhea but reports constipation managed with dietary adjustments. Preventative care includes a mammogram in May 2024 and Cologuard testing in 2010. Health Maintenance - Mammogram last performed in May 2024 - Cologuard testing last performed in 2010 - Advised to maintain a no-fat diet and regular exercise Social History - Alcohol use: Consumes one or two drinks about four times a week - Diet: No-fat diet with regular exercise - Hydration: Drinks approximately eight glasses of water daily Review of Systems - General: Reports lightheadedness for one week - Cardiovascular: Denies chest pain - Respiratory: Denies cough or dyspnea - Gastrointestinal: Reports constipation, denies diarrhea or blood in stools - Neurological: Denies headaches or vision problems Physical Exam - Skin: Actinic changes noted, yellowish discoloration of the sclera - Musculoskeletal: No pain in knees, no dizziness upon sitting up Results - Labs: December 2023 blood work showed hyponatremia, hypokalemia, normal renal function, elevated liver enzymes, LDL cholesterol of 65 mg/dL Plan Patient was informed and verbally consented to the use of an ambient scribe for clinic note documentation during this visit. 1. Hepatic Steatosis The patient will undergo liver function tests and an ultrasound to assess the liver status due to the noted yellowish discoloration of the sclera. 2. Seizure Disorder The patient's seizure disorder is currently stable, with no recent episodes reported. 3. Alcohol Use Disorder The patient is advised to continue reducing alcohol intake and monitor liver function closely. 4. Hyponatremia Electrolyte levels will be re-evaluated to monitor hyponatremia and hypokalemia. 5. Hypokalemia Electrolyte levels will be re-evaluated to monitor hyponatremia and hypokalemia. 6. Hypercholesterolemia The patient is to continue atorvastatin 20 mg at bedtime, with a goal to maintain LDL cholesterol below 130 mg/dL and triglycerides below 150 mg/dL. 7. Generalized Anxiety Disorder The patient is advised to continue current management for anxiety and monitor symptoms. 8. Constipation The patient is advised to manage constipation with dietary adjustments, including increased fruit and prune intake. 9. Lightheadedness The patient is advised to monitor blood pressure and adjust medications as needed to address lightheadedness. Discussion Notes I discussed with the patient the need for further blood work to monitor liver function and electrolyte levels, given the yellowish discoloration of the sclera and previous findings of hyponatremia and hypokalemia. We also talked about scheduling an ultrasound to evaluate the liver condition further. The patient was advised to continue with atorvastatin for cholesterol management and to monitor blood pressure closely due to recent episodes of lightheadedness. Patient Instructions - Continue taking atorvastatin 20 mg at bedtime. - Monitor blood pressure regularly and report any significant changes. - Schedule and complete blood work and liver ultrasound as discussed. - Maintain a no-fat diet and regular exercise routine. - Limit alcohol intake to one or two drinks, four times a week. - Manage constipation with increased fruit and prune intake. Orders: Orders Complete Blood Count Auto Diff Today R42 - Dizziness and giddiness Comprehensive Met. Panel Today R42 - Dizziness and giddiness Free T4 (Free Thyroxine) Today R42 - Dizziness and giddiness Magnesium Today R42 - Dizziness and giddiness US abdomen complete Today R42 - Dizziness and giddiness, R79.89 - Other specified abnormal findings of blood chemistry Ammonia Today R42 - Dizziness and giddiness Lipase Today R42 - Dizziness and giddiness Thyroid Stimulating Hormone Today R42 - Dizziness and giddiness UA CC w/rflx Micro + Cult Today R30.0 - Dysuria, R42 - Dizziness and giddiness
[2024-12-02 15:41] VITALS: BP 110/60; PULSE 81; TEMP 36.3; O2SAT 100; BMI 26.1
== END 2024-12-02 17:15 | disposition home or self-care (01) ==
LOC: HO.HMCH 15:40
PROVIDERS: PCP Internal Medicine; Visit Provider Internal Medicine
DX: K76.0 Fatty (change of) liver, not elsewhere classified (principal); F10.10 Alcohol abuse, uncomplicated; R56.9 Unspecified convulsions; E78.00 Pure hypercholesterolemia, unspecified; F41.1 Generalized anxiety disorder; K59.00 Constipation, unspecified; R42 Dizziness and giddiness

== ENCOUNTER → 2024-12-02 15:39 | Outpatient (BNVA) | payer OTHER, SELFPAY | PROVIDERS: PCP Internal Medicine; Visit Provider Internal Medicine | DX: K76.0 Fatty (change of) liver, not elsewhere classified (principal); F10.10 Alcohol abuse, uncomplicated; R56.9 Unspecified convulsions; E78.00 Pure hypercholesterolemia, unspecified; F41.1 Generalized anxiety disorder; K59.00 Constipation, unspecified; R42 Dizziness and giddiness; R79.89 Other specified abnormal findings of blood chemistry; R30.0 Dysuria | CPT/HCPCS: 96127 ==

== ENCOUNTER 2024-12-04 16:41 | Outpatient (REF) | payer OTHER, SELFPAY ==
[2024-12-04 17:03] LABS: Ammonia 32 umol/L (13-55)
[2024-12-04 17:04] LABS: Hematocrit 33.5 % (37.0-47.0); Hemoglobin 11.9 g/dl (12.0-16.0); Imm Gran Abs Auto 0.03 X10*3/uL (0.00-0.03); Imm Gran Pct Auto 0.4 % (0.0-0.4); Lymphocytes Absolute Auto 1.0 X10*3/uL (1.2-4.9); MANUAL DIFF FLAG SCAN; Mean Corpuscular HGB Conc 35.5 g/dl (31.0-35.0); Mean Corpuscular Hemoglobin 32.2 pg (27.0-33.0); Mean Corpuscular Volume 90.5 fL (80.0-98.0); NRBC Abs Auto 0.000 X10*3/uL (0.0-0.012); NRBC Pct Auto 0.0 /100WBC (0.0-0.2); Platelet Count 207 X10*3/uL (160-400); Red Blood Count 3.70 X10*6/uL (4.20-5.50); SCAN SMEAR FLAG 1; White Blood Count 7.3 X10*3/uL (4.8-10.8)
[2024-12-04 17:24] LABS: Appearance Urine Clear; Glucose Urine UA Negative (Negative); PH 7.0 (5.0-9.0); Specific Gravity - Urine <= 1.005 (1.005-1.025)
[2024-12-04 17:55] LABS: Alanine Aminotransferase 139 U/L (0-31); Albumin Level 4.1 g/dL (3.5-5.0); Alkaline Phosphatase 289 U/L (39-117); Anion Gap 11 (12-20); Aspartate Amino Transferase 265 U/L (5-31); Blood Urea Nitrogen 10 mg/dL (9-16); Calcium 9.3 mg/dL (8.4-10.2); Carbon Dioxide 31 mmol/L (22-29); Chloride 86 mmol/L (96-108); Estimated Glomerular Filt Rate > 60; Lipase 40 U/L (8-78); Magnesium 1.7 mg/dL (1.6-2.6); Potassium 2.9 mmol/L (3.3-5.1); Sodium 125 mmol/L (135-145); Total Protein 7.3 g/dL (6.5-8.0)
[2024-12-04 18:03] LABS: Free T4 (Free Thyroxine) 0.92 ng/dL (0.71-1.85); Thyroid Stimulating Hormone 6.05 uIU/mL (0.32-4.0)
== END 2024-12-04 16:42 | disposition home or self-care (01) ==
LOC: HO.LAB 16:41
PROVIDERS: PCP Internal Medicine; Visit Provider Internal Medicine
DX: R30.0 Dysuria (principal); R42 Dizziness and giddiness
CPT/HCPCS: 36415; 80053; 81003; 82140; 83690; 83735; 84439; 84443; 85025

== ENCOUNTER 2024-12-11 11:43 | Outpatient (REF) | payer OTHER, SELFPAY ==
[2024-12-11 12:48] LABS: Alanine Aminotransferase 214 U/L (0-31); Albumin Level 3.9 g/dL (3.5-5.0); Alkaline Phosphatase 239 U/L (39-117); Anion Gap 12 (12-20); Aspartate Amino Transferase 377 U/L (5-31); Blood Urea Nitrogen 6 mg/dL (9-16); Calcium 8.8 mg/dL (8.4-10.2); Carbon Dioxide 23 mmol/L (22-29); Chloride 102 mmol/L (96-108); Estimated Glomerular Filt Rate > 60; Potassium 4.3 mmol/L (3.3-5.1); Sodium 133 mmol/L (135-145); Total Protein 7.3 g/dL (6.5-8.0)
== END 2024-12-11 11:44 | disposition home or self-care (01) ==
LOC: HO.LAB 11:43
PROVIDERS: PCP Internal Medicine; Visit Provider Internal Medicine
DX: E78.1 Pure hyperglyceridemia (principal)
CPT/HCPCS: 36415; 80053

== ENCOUNTER 2025-01-14 13:32 | Outpatient (AMB) | payer MEDICARE, SELFPAY ==
[2025-01-14 13:42] VITALS: BP 116/62; PULSE 102; RESP 18; TEMP 36.1; O2SAT 98; BMI 26.8
--- NOTE | 2025-01-14 13:42 | A.OFFPC_ITS ---
Vital Signs 01/14/25 13:42 Height 5 ft 3 in Weight 151 lb 8 oz BMI 26.8 BP 116/62 Blood Pressure Location Lt brachial Position Sitting Respiration 18 Pulse 102 H Pulse Source Pulse Oximeter Temp 96.9 F Temp Source Temporal Artery Scan Pulse Oximetry (%) 98 Oxygen Delivery Method Room Air Intake Visit Reasons: lightheaded Finance Lead Required: No Accompanied by: Self / Same As Patient Allergies penicillin G (Penicillin G) Allergy (Unknown, Verified 01/14/25 14:18) RASH Sulfa (Sulfonamide Antibiotics) Allergy (Unknown, Verified 01/14/25 14:18) RASH Medication List - Last Reconciled 01/14/25 by SHAWNA Walter cetirizine (Zyrtec) 10 mg PO DAILY PRN multivitamin 1 tab PO DAILY Tobacco use date assessed: 01/14/25 Fall risk assessment: 1 Fall in past year Last assessed Fall Risk: 01/14/25 Dental Screening Dental Screen Date: 01/14/25 Did you have a dental visit in the last 12 months?: No Did you have a dental problem in the last 6 months where you did not have access to dental care?: No Was dental information given to patient?: Patient has dentist HPI lightheaded HPI Details The patient is a 64-year-old female presenting for a follow-up on abnormal lab results and physical findings. At a previous visit, yellow d iscoloration was noted around her eyes, prompting concern for worsening of liver disease. The patient's lab results from January show that her sodium has improved from 125 to 133 mEq/L, but her liver enzymes have worsened, with the AST increasing from 265 to 377 U/L. The patient attributes the elevated liver enzymes to her continued alcohol consumption. Regarding her alcohol use, her son reports that they have previously attempted to get her into a rehabilitation program without success. He states that his full-time work schedule is a barrier to monitoring, and the longest she has abstained from alcohol is one to two weeks. The patient has not previously tried any medications for alcohol cravings. [facility] Medical History Asthma Surgical History History of tonsillectomy and adenoidectomy Bunion of great toe Breast implant in situ Family History Mother Dementia Crohn disease Father Dementia Son No problems noted. Brother No problems noted. Brother No problems noted. 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 Cognitive needs: No Hearing needs: No Vision needs: Yes Questionnaire Thrive Questionnaire Date Thrive assessed: 12/02/24 I am a: Patient What is your living situation today?: I have a steady place to live Within the past 12 months, did the food you bought not last and you didn't have the money to get more?: Never true Within the past 12 months, did you worry whether your food would run out before you got money to buy more?: Never true Do you have trouble paying for medicines?: No Do you have trouble getting transportation to medical appointments?: No Do you have trouble paying your heating and electricity bill?: No Do you have trouble taking care of your child, family member or friend?: No Do you have trouble with day-to-day activities such as bathing, preparing meals, shopping, managing finances, etc.?: No Are you currently unemployed and looking for a job?: No Are you interested in more education?: No Please select the resources that you would like help with: None Currently or been in a relationship where the following occur: No concerns reported THRIVE Score: 0 RICKY-7 AMB Questionnaire RICKY-7 Date RICKY - 7 assessed: 12/02/24 Source: Developed by Drs. Dieudonne Parada, Maria Esther Lassiter, Gerardo Hernandez and colleagues, with an educational teresa from [employer] Review of Systems Const Denies body aches, Denies chills, Denies fever(s), Denies headache(s) and Denies poor appetite Eyes Reports no additional complaints ENT Denies dysphagia, Denies dizziness, Denies headache(s) and Denies odynophagia Card Denies chest pain, Denies syncope, Denies edema, Denies irregular heart rhythm, Denies lightheadedness and Denies dyspnea Resp Denies cough and Denies dyspnea GI Denies abdominal pain, Denies constipation, Denies dysphagia, Denies diarrhea, Denies nausea, Denies odynophagia and Denies vomiting Reports no additional complaints Musc Reports no additional complaints and Denies abnormal gait Skin/Breast Reports system reviewed and no additional complaints, except as documented Neuro Denies abnormal gait, Denies dizziness, Denies syncope and Denies headache(s) Psych Reports no additional complaints Physical exam (Primary Care) Vital Signs: Last Vital Signs Temp 96.9 F 01/14/25 13:42 Pulse 102 H 01/14/25 13:42 Resp 18 01/14/25 13:42 BP 116/62 01/14/25 13:42 Pulse Ox 98 01/14/25 13:42 Oxygen Delivery Method Room Air 01/14/25 13:42 BMI result Body Mass Index 26.8 Tobacco/Smoking Status: Tobacco use Status Tobacco use date assessed 01/14/25 01/14/25 13:49 Patient Tobacco Use Status Never used Tobacco 01/14/25 13:49 Tobacco use type Cigarette 01/14/25 13:49 e-Cigarette/Vaping Use Never Used 01/14/25 13:49 Thrive Assessment: Date of Thrive Assessment Date Thrive assessed 12/02/24 01/14/25 13:49 Currently or been in a relationship where the following occur: No concerns reported Const General: cooperative, healthy appearing, comfortable and no acute distress Orientation/consciousness: patient oriented x3 [facility] Head: Yes normocephalic Ears: hearing grossly normal bilaterally General nose exam: Normal external nose present Eyes General: appearance normal, both eyes and all related structures Conjunctivae: conjunctivae normal Neck Neck: Yes full ROM and Yes no lymphadenopathy Resp Effort & Inspection: normal respiratory effort Auscultation: clear to auscultation bilaterally, no crackles, no rales, no rhonchi and no wheezes Cardio Rate: regular rate Rhythm: regular rhythm GI Palpation (GI): Soft to palpation and nontender Auscultation: normal bowel sounds Skin General skin exam: no rashes or lesions noted Neuro General: patient oriented x3 Gait exam (Neuro): Normal gait present Extrem General: Yes normal to inspection, Yes full ROM and No edema Psych Affect: normal affect Attitude: cooperative Insight: Good insight present (Psych) Judgement: Good judgement present (Psych) Results Reviewed Results Reviewed: Laboratory Tests 12/11/24 11:54 Sodium 133 L Potassium 4.3 D Chloride 102 Carbon Dioxide 23 Anion Gap 12 BUN 6 L Creatinine 0.55 Estimated GFR > 60 Random Glucose 90 Calcium 8.8 Total Bilirubin 2.0 H AST 377 H ALT 214 H Alkaline Phosphatase 239 H Total Protein 7.3 Albumin 3.9 Coding Level of Care Code Est Pt Level 3 (43383) Diagnoses Hepatic steatosis K76.0 Hyponatremia E87.1 Alcohol abuse F10.10 Time Spent (min) 34 Assessment & Plan Assessment & Plan (1) Hepatic steatosis: Code(s): K76.0 - Fatty (change of) liver, not elsewhere classified Category: Medical Plan: The patient's AST has worsened, increasing from 265 to 377 U/L, indicating ongoing liver injury secondary to alcohol use. The patient is scheduled for a liver ultrasound on the . A follow-up appointment will be scheduled with Dr. Gerber for continued management. (2) Hyponatremia: Code(s): E87.1 - Hypo-osmolality and hyponatremia Category: Medical Plan: The patient's sodium level has improved to 133 mEq/L from a prior level of 125 mEq/L. No acute intervention is required at this time, and this will be monitored. (3) Alcohol abuse: Comment: (4 x a week 1-2 drinks)11/2024 Code(s): F10.10 - Alcohol abuse, uncomplicated Category: Social Hx Plan: The patient's elevated liver enzymes are attributed to her ongoing alcohol use. She has been unable to maintain sobriety despite prior attempts. An urgent referral will be made to an addiction medicine specialist for management, including consideration of medications to help reduce cravings. The addiction clinic at [facility] will contact the patient for scheduling. The importance of addressing alcohol consumption to prevent further liver damage was emphasized. Orders: Referrals Addiction Medicine Referral F10.10 - Alcohol abuse, uncomplicated
== END 2025-01-14 14:35 | disposition home or self-care (01) ==
LOC: HO.HMCH 13:34
PROVIDERS: PCP Internal Medicine
DX: K76.0 Fatty (change of) liver, not elsewhere classified (principal); E87.1 Hypo-osmolality and hyponatremia; F10.10 Alcohol abuse, uncomplicated

== ENCOUNTER → 2025-01-14 13:32 | Outpatient (BNVA) | payer MEDICARE, SELFPAY | PROVIDERS: PCP Internal Medicine | DX: K76.0 Fatty (change of) liver, not elsewhere classified (principal); E87.1 Hypo-osmolality and hyponatremia; F10.10 Alcohol abuse, uncomplicated | CPT/HCPCS: 99212 ==

== ENCOUNTER 2025-01-29 09:24 | Outpatient (REF) | payer MEDICARE, SELFPAY ==
--- NOTE | ~2025-01-29 | US_ITS ---
CLINICAL HISTORY: R79.89 - Other specified abnormal findings of blood chemistry US abdomen complete Comparison: None provided Findings: The visualized pancreas is normal. The aorta and inferior vena cava are normal caliber. The appearance of the liver suggests fatty infiltration. There is no intrahepatic bile duct dilatation. The common duct is 3.0 mm in diameter. The gallbladder is normal. There is no sonographic Aldana sign. The main portal vein is antegrade. The right kidney is 11.4 cm in length. The left kidney is 11.1 cm in length. The spleen is normal. No ascites. IMPRESSION: 1. Hepatic steatosis. This document has been electronically signed by: Se Newman MD on 01/30/2025 11:34:29
== END 2025-01-29 09:25 | disposition home or self-care (01) ==
LOC: HO.US 09:24
PROVIDERS: PCP Internal Medicine; Visit Provider Internal Medicine
DX: R79.89 Other specified abnormal findings of blood chemistry (principal); R42 Dizziness and giddiness
CPT/HCPCS: 76700

== ENCOUNTER → 2025-01-29 09:25 | Outpatient (BNV) | payer MEDICARE, SELFPAY | PROVIDERS: PCP Internal Medicine; Visit Provider Specialist | DX: K76.0 Fatty (change of) liver, not elsewhere classified (principal) | CPT/HCPCS: 76700 ==